=== PATIENT | male | born 1960 | race Caucasian/White ===

== ENCOUNTER 2018-12-24 06:19 | Inpatient (IN) | payer MEDICAID ==
[~2018-12-24] VITALS: Ht 170.2 cm; Wt 78.9 kg
[~2018-12-24 06:19] MED LIST: BACI500P7 GT; CEFT1FRO5 IV; KEPPSOL GT; METO-539 GT; PROT40 IVP; VANC1.257 IV; [UNRECOGNIZED DRUG - CODE] IV
[2018-12-24 07:33] LABS: BASOPHILS % 0.4 % (0.0-2.0); EOSINOPHILS % 2.1 % (0.0-5.0); HEMATOCRIT. 49.7 % (42.0-52.0); HEMOGLOBIN. 16.7 g/dL (14.0-18.0); LYMPHOCYTES % 12.4 % (20.0-50.0); MEAN CORPUSCULAR HEMOGLOBIN 29.8 pg (28.0-32.0); MEAN CORPUSCULAR VOLUME 88.7 fL (80.0-94.0); MEAN PLATELET VOLUME 9.9 fl (7.4-10.4); MONOCYTES % 5.6 % (2.0-8.0); NEUTROPHILS % 79.5 % (40.0-76.0); PLATELET 132 x1000/uL (130-400); RED CELL DISTRIBUTION WIDTH 13.3 % (11.6-14.6)
[2018-12-24 07:36] LABS: CHLORIDE 102 mEq/L (98-107)
[2018-12-24 07:38] LABS: PROTHROMBIN TIME 10.3 sec (9.6-11.0)
[2018-12-24] MEDS ORDERED: VANCOMYCIN 1 G PREMIX 200 ML IV SCH (08:15)
[2018-12-24] MEDS ORDERED: PIPERACILLIN/TAZOBACTAM 3.375GM/50ML PREMIX IV ONE (08:15)
[2018-12-24 09:35] LABS: CLARITY URINE CLEAR (CLEAR); COLOR URINE DARK YELLOW (YELLOW); KETONES URINE 1+ (NEGATIVE); LEUKOCYTE ESTERASE URINE TRACE (NEGATIVE); NITRITE URINE NEGATIVE (NEGATIVE); OCCULT BLOOD URINE 1+ (NEGATIVE); PH URINE 7.5 (4.5-8.0); PROTEIN URINE NEGATIVE (NEGATIVE); SPECIFIC GRAVITY URINE 1.023 (1.005-1.030)
[2018-12-24] MEDS ORDERED: MORPHINE SULFATE 4 MG/ML CPJ (NOT FOR IM USE) IV STA (11:26)
[2018-12-24] MEDS ORDERED: ONDANSETRON HCL 4MG/2ML INJ IV STA (11:26)
[2018-12-24] MEDS ORDERED: IOHEXOL-300 100 ML BOTTLE ONE ×2 (13:03→14:37)
[2018-12-24 14:15] VITALS: BP 98/66
[2018-12-24] MEDS ORDERED: ACETAMINOPHEN 650MG SUPP PR PRN (15:30)
[2018-12-24] MEDS ORDERED: ONDANSETRON HCL 4MG/2ML INJ IV PRN (15:30)
[2018-12-24] MEDS ORDERED: NA PHOS,M-B/NA PHOS,DI-BA ENEMA 118ML PR PRN (15:30)
[2018-12-24 16:00] VITALS: BP 104/60
[2018-12-24] MEDS: ENOXAPARIN 40MG/0.4ML SYR SUBCUT SCH (18:07)
[2018-12-24] MEDS: LEVOFLOXACIN 500MG PREMIX 100 ML IV SCH (18:07)
[2018-12-24] MEDS: DEXT 5%/0.45% NACL 1000ML 1,000 ML IV SCH (18:08)
[2018-12-24 19:56] VITALS: BP 113/59
[2018-12-24] MEDS: METRONIDAZOLE 500 MG PREMIX 100 ML IV SCH (20:30)
[2018-12-24] MEDS: LEVETIRACETAM 500 MG in SODIUM CHLORIDE 0.9% 100 ML IV SCH (21:23)
[2018-12-25] VITALS: BP 104/64
[2018-12-25] MEDS: METRONIDAZOLE 500 MG PREMIX 100 ML IV SCH ×3 (01:39→19:59)
[2018-12-25 04:00] VITALS: BP 108/60
[2018-12-25 06:22] LABS: BASOPHILS % 0.7 % (0.0-2.0); EOSINOPHILS % 0.9 % (0.0-5.0); HEMATOCRIT. 45.8 % (42.0-52.0); HEMOGLOBIN. 15.2 g/dL (14.0-18.0); LYMPHOCYTES % 13.3 % (20.0-50.0); MEAN CORPUSCULAR HEMOGLOBIN 29.7 pg (28.0-32.0); MEAN CORPUSCULAR VOLUME 89.3 fL (80.0-94.0); MEAN PLATELET VOLUME 10.2 fl (7.4-10.4); MONOCYTES % 9.2 % (2.0-8.0); NEUTROPHILS % 75.9 % (40.0-76.0); PLATELET 133 x1000/uL (130-400); RED BLOOD CELL COUNT 5.13 mill/uL (4.7-6.1); RED CELL DISTRIBUTION WIDTH 13.4 % (11.6-14.6)
[2018-12-25 08:00] VITALS: BP 100/62
[2018-12-25] MEDS: LEVETIRACETAM 500 MG in SODIUM CHLORIDE 0.9% 100 ML IV SCH ×2 (08:26→21:39)
[2018-12-25 08:42] LABS: CHLORIDE 104 mEq/L (98-107)
[2018-12-25 12:00] VITALS: BP 110/69
[2018-12-25 16:00] VITALS: BP 122/72
[2018-12-25] MEDS: LEVOFLOXACIN 500MG PREMIX 100 ML IV SCH (16:34)
[2018-12-25] MEDS: ENOXAPARIN 40MG/0.4ML SYR SUBCUT SCH (16:34)
[2018-12-25] MEDS: DEXT 5%/0.45% NACL 1000ML 1,000 ML IV SCH (16:39)
[2018-12-25 20:00] VITALS: BP 116/77
[2018-12-26] VITALS: BP 124/82
[2018-12-26] MEDS: DEXT 5%/0.45% NACL 1000ML 1,000 ML IV SCH ×2 (00:44→17:57)
[2018-12-26] MEDS: METRONIDAZOLE 500 MG PREMIX 100 ML IV SCH ×3 (02:36→17:58)
[2018-12-26 04:00] VITALS: BP 111/68
[2018-12-26 06:05] LABS: BASOPHILS % 1.1 % (0.0-2.0); EOSINOPHILS % 2.2 % (0.0-5.0); HEMATOCRIT. 42.3 % (42.0-52.0); HEMOGLOBIN. 14.3 g/dL (14.0-18.0); LYMPHOCYTES % 20.4 % (20.0-50.0); MEAN CORPUSCULAR HEMOGLOBIN 29.9 pg (28.0-32.0); MEAN CORPUSCULAR VOLUME 88.5 fL (80.0-94.0); MEAN PLATELET VOLUME 9.8 fl (7.4-10.4); MONOCYTES % 10.4 % (2.0-8.0); NEUTROPHILS % 65.9 % (40.0-76.0); PLATELET 147 x1000/uL (130-400); RED BLOOD CELL COUNT 4.78 mill/uL (4.7-6.1)
[2018-12-26 06:08] LABS: CHLORIDE 106 mEq/L (98-107)
[2018-12-26 08:00] VITALS: BP 115/73
[2018-12-26] MEDS: LEVETIRACETAM 500 MG in SODIUM CHLORIDE 0.9% 100 ML IV SCH ×2 (08:54→21:02)
[2018-12-26 12:00] VITALS: BP 121/81
[2018-12-26 16:00] VITALS: BP 112/73
[2018-12-26] MEDS: LEVOFLOXACIN 500MG PREMIX 100 ML IV SCH (18:00)
[2018-12-26] MEDS: ENOXAPARIN 40MG/0.4ML SYR SUBCUT SCH (18:01)
[2018-12-26 20:00] VITALS: BP 107/68
[2018-12-27] VITALS: BP 100/64
[2018-12-27] MEDS: METRONIDAZOLE 500 MG PREMIX 100 ML IV SCH ×3 (01:30→18:08)
[2018-12-27 04:00] VITALS: BP 105/73
[2018-12-27 08:00] VITALS: BP 113/63
[2018-12-27] MEDS: LEVETIRACETAM 500 MG in SODIUM CHLORIDE 0.9% 100 ML IV SCH ×2 (09:47→21:03)
[2018-12-27] MEDS: DEXT 5%/0.45% NACL 1000ML 1,000 ML IV SCH (09:59)
[2018-12-27 12:00] VITALS: BP 113/79
[2018-12-27 16:00] VITALS: BP 119/73
[2018-12-27] MEDS: LEVOFLOXACIN 500MG PREMIX 100 ML IV SCH (16:30)
[2018-12-27] MEDS: ENOXAPARIN 40MG/0.4ML SYR SUBCUT SCH (16:30)
[2018-12-27] MEDS: PANTOPRAZOLE SODIUM 40 MG/VIAL IV SCH (18:10)
[2018-12-27 20:00] VITALS: BP 118/78
[2018-12-28] VITALS: BP 116/56
[2018-12-28] MEDS: METRONIDAZOLE 500 MG PREMIX 100 ML IV SCH ×3 (01:44→19:03)
[2018-12-28] MEDS: DEXT 5%/0.45% NACL 1000ML 1,000 ML IV SCH ×2 (02:44→08:30)
[2018-12-28 04:00] VITALS: BP 128/68
[2018-12-28 08:00] VITALS: BP 115/72
[2018-12-28] MEDS: PANTOPRAZOLE SODIUM 40 MG/VIAL IV SCH (08:29)
[2018-12-28] MEDS: LEVETIRACETAM 500 MG in SODIUM CHLORIDE 0.9% 100 ML IV SCH ×2 (08:29→21:33)
[2018-12-28] MEDS ORDERED: FENTANYL CITRATE/PF 50MCG/ML 2ML VIAL ONE (12:51)
[2018-12-28] MEDS ORDERED: MIDAZOLAM HCL 5 MG/5 ML VIAL ONE (12:51)
[2018-12-28] MEDS ORDERED: FENTANYL CITRATE/PF 50MCG/ML 2ML VIAL IV PRN (13:05)
[2018-12-28] MEDS ORDERED: MIDAZOLAM HCL 2 MG/2 ML VIAL IV PRN (13:07)
[2018-12-28] MEDS: ENOXAPARIN 40MG/0.4ML SYR SUBCUT SCH (15:09)
[2018-12-28 16:00] VITALS: BP 114/73
[2018-12-28] MEDS: SUCRALFATE 1 G/10 ML UDC GT SCH (17:24)
[2018-12-28] MEDS: LEVOFLOXACIN 500MG PREMIX 100 ML IV SCH (17:24)
[2018-12-28] MEDS: METOCLOPRAMIDE HCL 10MG/2ML VIAL IV SCH (19:03)
[2018-12-28 20:00] VITALS: BP 123/76
[2018-12-29] VITALS: BP 112/66
[2018-12-29] MEDS: METRONIDAZOLE 500 MG PREMIX 100 ML IV SCH (01:17)
[2018-12-29] MEDS: SUCRALFATE 1 G/10 ML UDC GT SCH ×4 (01:18→17:18)
[2018-12-29] MEDS: METOCLOPRAMIDE HCL 10MG/2ML VIAL IV SCH ×4 (01:20→17:18)
[2018-12-29 04:00] VITALS: BP 97/61
[2018-12-29] MEDS ORDERED: IPRATROPIUM/ALBUTEROL 0.5-3(2.5)MG/3ML NEB HHN PRN (05:30)
[2018-12-29 08:00] VITALS: BP 99/61
[2018-12-29] MEDS: LEVETIRACETAM 500 MG in SODIUM CHLORIDE 0.9% 100 ML IV SCH (09:31)
[2018-12-29] MEDS: PANTOPRAZOLE SODIUM 40 MG/VIAL IV SCH (09:31)
[2018-12-29 12:00] VITALS: BP 106/64
[2018-12-29 16:00] VITALS: BP 99/58
[2018-12-29] MEDS: ENOXAPARIN 40MG/0.4ML SYR SUBCUT SCH (17:19)
[2018-12-29 17:22] VITALS: BP 100/64
[2018-12-30] MEDS ORDERED: FAMOTIDINE 20MG/2ML VIAL IV SCH (09:00)
== END 2018-12-29 19:40 | DRG 252 ==
LOC: ER 06:19 → 7WST 09:45 → EDBEDREQSVC 09:57 → EDBEDREQ 09:57 → ENRESERV 12:12 → 7WST 14:15
PROVIDERS: ADMIT Hospitalist; ATTEND Hospitalist
PROC: 05H633Z Insertion of Infusion Device into Left Subclavian Vein, Percutaneous Approach (ICD-10-PCS; 2018-12-26)
PROC: B547ZZA Ultrasonography of Left Subclavian Vein, Guidance (ICD-10-PCS; 2018-12-26)
PROC: 0DB78ZX Excision of Stomach, Pylorus, Via Natural or Artificial Opening Endoscopic, Diagnostic (ICD-10-PCS; principal; 2018-12-28)
PROC: 0DB58ZX Excision of Esophagus, Via Natural or Artificial Opening Endoscopic, Diagnostic (ICD-10-PCS; 2018-12-28)
PROC: 0DH63UZ Insertion of Feeding Device into Stomach, Percutaneous Approach (ICD-10-PCS; 2018-12-28)
DX: K94.23 Gastrostomy malfunction (principal); G93.40 Encephalopathy, unspecified; I69.351 Hemiplegia and hemiparesis following cerebral infarction affecting right dominant side; R13.10 Dysphagia, unspecified; K26.9 Duodenal ulcer, unspecified as acute or chronic, without hemorrhage or perforation; K57.92 Diverticulitis of intestine, part unspecified, without perforation or abscess without bleeding; K56.41 Fecal impaction; I10 Essential (primary) hypertension; K20.9 Esophagitis, unspecified; K29.60 Other gastritis without bleeding; K29.80 Duodenitis without bleeding; L03.311 Cellulitis of abdominal wall; K44.9 Diaphragmatic hernia without obstruction or gangrene; Y83.8 Other surgical procedures as the cause of abnormal reaction of the patient, or of later complication, without mention of misadventure at the time of the procedure; Z79.899 Other long term (current) drug therapy; I69.391 Dysphagia following cerebral infarction; Y92.89 Other specified places as the place of occurrence of the external cause
CPT/HCPCS: 36415; 36569; 36573; 71045; 74177; 82962; 83605; 84145; 84484; 88305; 88312; 88313; 93005; 93970; 96365; 96366; 96367; 96375; 99285; A6261; C1725; C1893; C9113; J1650; J1953; J1956; J2250; J2270; J2405; J2543; J2765; J3010; J3370; J3490; J7050; Q9967

== ENCOUNTER 2019-06-22 10:51 | Emergency (ER) | payer MEDICAID ==
[~2019-06-22] VITALS: Ht 172.7 cm; Wt 70.0 kg
[2019-06-22 15:14] VITALS: BP 110/76
== END 2019-06-22 15:15 | disposition home or self-care (01) ==
LOC: ER 10:51
DX: M24.541 Contracture, right hand (principal); I10 Essential (primary) hypertension; Z93.3 Colostomy status; Z93.1 Gastrostomy status; Z86.73 Personal history of transient ischemic attack (TIA), and cerebral infarction without residual deficits; Z79.899 Other long term (current) drug therapy; W06.XXXA Fall from bed, initial encounter; Y93.89 Activity, other specified; Y92.89 Other specified places as the place of occurrence of the external cause; Y99.8 Other external cause status
CPT/HCPCS: 72040; 72170; 99283

== ENCOUNTER 2021-09-20 11:42 | Inpatient (IN) | payer MEDICAID ==
[~2021-09-20] VITALS: Ht 170.2 cm; Wt 87.6 kg
[2021-09-20] MEDS ORDERED: METHYLPREDNISOLONE SOD SUCC 125 MG/2 ML VIAL IV STA (12:35)
[2021-09-20] MEDS ORDERED: IPRATROPIUM BROMIDE (0.02%) 0.5MG/2.5ML NEB HHN STA (12:35)
[2021-09-20] MEDS ORDERED: ALBUTEROL (0.083%) 2.5MG/3ML NEB HHN SCH (13:00)
[2021-09-20 13:07] LABS: HEMATOCRIT. 26.8 % (42.0-52.0); HEMOGLOBIN. 8.4 g/dL (14.0-18.0); MEAN CORPUSCULAR HEMOGLOBIN 26.9 pg (28.0-32.0); MEAN CORPUSCULAR VOLUME 85.7 fL (80.0-94.0); MEAN PLATELET VOLUME 8.6 fl (7.4-10.4); PLATELET 182 x1000/uL (130-400); RED BLOOD CELL COUNT 3.12 mill/uL (4.7-6.1); RED CELL DISTRIBUTION WIDTH 15.8 % (11.6-14.6)
[2021-09-20 13:09] LABS: CHLORIDE 101 mEq/L (98-107)
[2021-09-20] MEDS ORDERED: SODIUM CHLORIDE 0.9% 500 ML IV ONE (13:45)
[2021-09-20 14:03] LABS: PLATELET ESTIMATE NORMAL
[2021-09-20] MEDS ORDERED: CEFTRIAXONE 1 G PREMIX 50 ML IV ONE (14:15)
[2021-09-20] MEDS ORDERED: VANCOMYCIN 1 G PREMIX 200 ML IV SCH (14:15)
[2021-09-20] MEDS ORDERED: DIATR MEGLU/DIATRIZOATE SOLN 30ML ONE (14:19)
[2021-09-20] MEDS ORDERED: CLINDAMYCIN 600 MG in DEXTROSE 5% WATER 50 ML IV ONE (16:45)
[2021-09-20] MEDS ORDERED: PIPERACILLIN/TAZ 3.375G PREMIX 50 ML IV ONE (16:45)
[2021-09-20] MEDS ORDERED: CLINDAMYCIN 600MG PREMIX 50 ML IV NR (20:30)
[2021-09-20] MEDS ORDERED: FUROSEMIDE 20MG/2ML VIAL IVP NR (22:00)
[2021-09-20] MEDS: PIPERACILLIN/TAZOBACTAM 3.375 G in DEXTROSE 5% WATER 50 ML IV SCH (23:54)
[2021-09-21] MEDS: VANCOMYCIN 500 MG PREMIX 100 ML IV SCH ×2 (00:18→07:00)
[2021-09-21] MEDS: PIPERACILLIN/TAZOBACTAM 3.375 G in DEXTROSE 5% WATER 50 ML IV SCH ×2 (06:00→14:00)
[2021-09-21] MEDS ORDERED: ONDANSETRON HCL 4MG/2ML INJ IV PRN (08:15)
[2021-09-21] MEDS: FUROSEMIDE 40MG/4ML VIAL IVP SCH (09:57)
[2021-09-21 16:00] VITALS: BP 102/58
[2021-09-21] MEDS ORDERED: VANCOMYCIN 750 MG PREMIX 150 ML IV SCH (16:00)
[2021-09-21 17:01] VITALS: BP 110/65
[2021-09-21 18:00] VITALS: BP 99/64
[2021-09-21 20:00] VITALS: BP 112/58
[2021-09-21] MEDS: VANCOMYCIN 750 MG PREMIX 150 ML IV SCH (20:44)
[2021-09-21 21:21] LABS: HEMATOCRIT. 27.4 % (42.0-52.0); HEMOGLOBIN. 8.4 g/dL (14.0-18.0); MEAN CORPUSCULAR HEMOGLOBIN 26.2 pg (28.0-32.0); MEAN CORPUSCULAR VOLUME 85.2 fL (80.0-94.0); MEAN PLATELET VOLUME 9.3 fl (7.4-10.4); PLATELET 142 x1000/uL (130-400); RED BLOOD CELL COUNT 3.21 mill/uL (4.7-6.1); RED CELL DISTRIBUTION WIDTH 16.1 % (11.6-14.6)
[2021-09-21 21:28] LABS: CHLORIDE 94 mEq/L (98-107)
[2021-09-21 22:00] VITALS: BP 102/51
[2021-09-21] MEDS: PIPERACILLIN/TAZOBACTAM 3.375G in DEXT 5% WATER 50ML IV SCH (22:20)
[2021-09-21 23:51] LABS: PLATELET ESTIMATE NORMAL
[2021-09-22] VITALS (12 sets, daily range): BP systolic 93–111; BP diastolic 44–70
[2021-09-22] MEDS: VANCOMYCIN 750 MG PREMIX 150 ML IV SCH ×2 (04:30→18:04)
[2021-09-22] MEDS: PIPERACILLIN/TAZOBACTAM 3.375G in DEXT 5% WATER 50ML IV SCH ×3 (05:36→21:13)
[2021-09-22 07:00] LABS: CHLORIDE 95 mEq/L (98-107)
[2021-09-22 07:11] LABS: HEMATOCRIT. 29.3 % (42.0-52.0); HEMOGLOBIN. 9.3 g/dL (14.0-18.0); MEAN CORPUSCULAR HEMOGLOBIN 27.1 pg (28.0-32.0); MEAN CORPUSCULAR VOLUME 85.5 fL (80.0-94.0); MEAN PLATELET VOLUME 9.4 fl (7.4-10.4); PLATELET 135 x1000/uL (130-400); RED BLOOD CELL COUNT 3.43 mill/uL (4.7-6.1); RED CELL DISTRIBUTION WIDTH 16.5 % (11.6-14.6)
[2021-09-22] MEDS: FUROSEMIDE 40MG/4ML VIAL IVP SCH (08:34)
[2021-09-22] MEDS: ACETAMINOPHEN 325MG TABLET PO PRN (08:34)
[2021-09-22] MEDS: PANTOPRAZOLE SODIUM 40 MG/VIAL IV SCH (08:34)
[2021-09-22] MEDS: METOPROLOL TARTRATE 50MG TABLET PO SCH (08:35)
[2021-09-22 10:57] LABS: BG BASE EXCESS 12.7 mmol/L (-2.0-2.0); BG CARBOXYHEMOGLOBIN 0.3 % (0.5-1.5); BG DEOXYHEMOGLOBIN 5.5 % (0.0-5.0); BG HCO3 ACT 37.3 mmol/L (22.0-26.0); BG METHEMOGLOBIN 0.2 % (0.0-1.5); BG OXYGEN SATURATION 94.5 % (92.0-98.5); BG PCO2 49.5 mmHg (35.0-45.0); BG PH 7.495 (7.350-7.450); BG PO2 77.3 mmHg (75.0-100.0); BG SAMPLE SITE LEFT RADIAL; BG TOTAL HEMOGLOBIN 7.8 g/dL (12.0-18.0); BG VENT MODE MASK - BIPAP
[2021-09-22] MEDS ORDERED: FUROSEMIDE 40MG/4ML VIAL IVP NR (13:45)
[2021-09-22 14:41] LABS: PLATELET ESTIMATE NORMAL
[2021-09-22] MEDS: IPRATROPIUM/ALBUTEROL 0.5-3(2.5)MG/3ML NEB HHN SCH (21:06)
[2021-09-23] VITALS (10 sets, daily range): BP systolic 94–128; BP diastolic 47–68
[2021-09-23] MEDS: IPRATROPIUM/ALBUTEROL 0.5-3(2.5)MG/3ML NEB HHN SCH ×4 (02:12→20:45)
[2021-09-23] MEDS: ACETYLCYSTEINE 100MG/ML 10% VIAL 4ML INH SCH ×5 (02:12→22:00)
[2021-09-23] MEDS: VANCOMYCIN 750 MG PREMIX 150 ML IV SCH (05:08)
[2021-09-23] MEDS: PIPERACILLIN/TAZOBACTAM 3.375G in DEXT 5% WATER 50ML IV SCH ×3 (05:58→21:34)
[2021-09-23 06:16] LABS: CHLORIDE 88 mEq/L (98-107)
[2021-09-23 06:19] LABS: HEMATOCRIT. 23.5 % (42.0-52.0); HEMOGLOBIN. 7.7 g/dL (14.0-18.0); MEAN CORPUSCULAR HEMOGLOBIN 27.4 pg (28.0-32.0); MEAN PLATELET VOLUME 9.5 fl (7.4-10.4); PLATELET 107 x1000/uL (130-400); RED BLOOD CELL COUNT 2.79 mill/uL (4.7-6.1); RED CELL DISTRIBUTION WIDTH 16.5 % (11.6-14.6)
[2021-09-23] MEDS: PANTOPRAZOLE SODIUM 40 MG/VIAL IV SCH (08:52)
[2021-09-23] MEDS: FUROSEMIDE 40MG/4ML VIAL IVP SCH (08:52)
[2021-09-23] MEDS: METOPROLOL TARTRATE 50MG TABLET PO SCH (08:52)
[2021-09-23 19:21] LABS: TOTAL IRON BINDING CAPACITY 241 ug/dL (250-450)
[2021-09-24] VITALS: BP 103/53
[2021-09-24 04:00] VITALS: BP 86/56
[2021-09-24] MEDS: PIPERACILLIN/TAZOBACTAM 3.375G in DEXT 5% WATER 50ML IV SCH ×3 (05:59→21:04)
[2021-09-24 06:13] LABS: BASOPHILS % 0.5 % (0.0-2.0); EOSINOPHILS % 3.2 % (0.0-5.0); LYMPHOCYTES % 7.7 % (20.0-50.0); MEAN CORPUSCULAR HEMOGLOBIN 27.5 pg (28.0-32.0); MEAN CORPUSCULAR VOLUME 83.5 fL (80.0-94.0); MONOCYTES % 7.5 % (2.0-8.0); NEUTROPHILS % 81.1 % (40.0-76.0); PLATELET 91 x1000/uL (130-400); RED BLOOD CELL COUNT 2.46 mill/uL (4.7-6.1); RED CELL DISTRIBUTION WIDTH 16.5 % (11.6-14.6)
[2021-09-24 06:25] LABS: HEMATOCRIT. 20.6 % (42.0-52.0); HEMOGLOBIN. 6.8 g/dL (14.0-18.0)
[2021-09-24 06:58] LABS: CHLORIDE 93 mEq/L (98-107)
[2021-09-24 07:06] LABS: VANCOMYCIN TROUGH 9.5 ug/mL (5.0-10.0)
[2021-09-24 07:26] LABS: PLATELET ESTIMATE SLIGHTLY DECREASED
[2021-09-24 08:00] VITALS: BP 99/53
[2021-09-24] MEDS ORDERED: POTASSIUM CHLORIDE INJ 40 MEQ in DEXT 5% WATER 500 ML IV ONE (08:15)
[2021-09-24] MEDS ORDERED: POTASSIUM CHLORIDE 20MEQ/PACKET PO NR ×2 (08:22→11:30)
[2021-09-24] MEDS: IPRATROPIUM/ALBUTEROL 0.5-3(2.5)MG/3ML NEB HHN SCH ×4 (08:25→20:41)
[2021-09-24] MEDS: FUROSEMIDE 40MG/4ML VIAL IVP SCH (08:45)
[2021-09-24] MEDS: METOPROLOL TARTRATE 50MG TABLET PO SCH (09:00)
[2021-09-24] MEDS: PANTOPRAZOLE SODIUM 40 MG/VIAL IV SCH (09:05)
[2021-09-24] MEDS: KCL 20MEQ/100ML PREMIX 100 ML IV SCH ×2 (10:56→12:45)
[2021-09-24 12:00] VITALS: BP 101/46
[2021-09-24 13:05] LABS: BG BASE EXCESS 17.4 mmol/L (-2.0-2.0); BG CARBOXYHEMOGLOBIN 0.7 % (0.5-1.5); BG DEOXYHEMOGLOBIN 1.8 % (0.0-5.0); BG FRACTION INSPIRED OXYGEN 35; BG HCO3 ACT 42.1 mmol/L (22.0-26.0); BG METHEMOGLOBIN 0.4 % (0.0-1.5); BG OXYGEN SATURATION 98.2 % (92.0-98.5); BG OXYHEMOGLOBIN 97.1 % (94.0-97.0); BG PCO2 52.7 mmHg (35.0-45.0); BG PO2 117.4 mmHg (75.0-100.0); BG SAMPLE SITE RIGHT RADIAL; BG TOTAL HEMOGLOBIN 7.7 g/dL (12.0-18.0); BG VENT MODE MASK - VENTI
[2021-09-24] MEDS: ACETYLCYSTEINE 100MG/ML 10% VIAL 4ML INH SCH (14:37)
[2021-09-24 16:00] VITALS: BP 114/57
[2021-09-24 18:15] LABS: CHLORIDE 99 mEq/L (98-107)
[2021-09-24 20:00] VITALS: BP 132/73
[2021-09-25] VITALS (7 sets, daily range): BP systolic 102–127; BP diastolic 63–70
[2021-09-25] MEDS: IPRATROPIUM/ALBUTEROL 0.5-3(2.5)MG/3ML NEB HHN SCH ×4 (00:54→21:34)
[2021-09-25] MEDS: ACETYLCYSTEINE 100MG/ML 10% VIAL 4ML INH SCH ×3 (00:54→15:01)
[2021-09-25] MEDS: PIPERACILLIN/TAZOBACTAM 3.375G in DEXT 5% WATER 50ML IV SCH ×2 (05:00→14:00)
[2021-09-25 06:26] LABS: HEMATOCRIT 22.9 % (42.0-52.0); HEMOGLOBIN 7.4 g/dL (14.0-18.0); MEAN CORPUSCULAR HEMOGLOBIN 27.2 pg (28.0-32.0); MEAN CORPUSCULAR VOLUME 84.5 fL (80.0-94.0); PLATELET 112 x1000/uL (130-400); RED BLOOD CELL COUNT 2.71 mill/uL (4.7-6.1); RED CELL DISTRIBUTION WIDTH 16.7 % (11.6-14.6)
[2021-09-25 08:54] LABS: BG BASE EXCESS 11.6 mmol/L (-2.0-2.0); BG CARBOXYHEMOGLOBIN 1.2 % (0.5-1.5); BG DEOXYHEMOGLOBIN 2.2 % (0.0-5.0); BG FRACTION INSPIRED OXYGEN 35; BG HCO3 ACT 36.5 mmol/L (22.0-26.0); BG METHEMOGLOBIN 0.5 % (0.0-1.5); BG OXYGEN SATURATION 97.8 % (92.0-98.5); BG OXYHEMOGLOBIN 96.1 % (94.0-97.0); BG PCO2 51.2 mmHg (35.0-45.0); BG PH 7.471 (7.350-7.450); BG PO2 100.8 mmHg (75.0-100.0); BG SAMPLE SITE LEFT RADIAL; BG TOTAL HEMOGLOBIN 8.1 g/dL (12.0-18.0); BG VENT MODE MASK - VENTI
[2021-09-25] MEDS: METOPROLOL TARTRATE 50MG TABLET PO SCH ×2 (09:00→11:21)
[2021-09-25] MEDS: PANTOPRAZOLE SODIUM 40 MG/VIAL IV SCH (09:31)
[2021-09-25] MEDS: FUROSEMIDE 40MG/4ML VIAL IVP SCH (09:31)
[2021-09-26] VITALS: BP 108/70
[2021-09-26] MEDS: ACETYLCYSTEINE 100MG/ML 10% VIAL 4ML INH SCH ×3 (01:39→12:17)
[2021-09-26] MEDS: IPRATROPIUM/ALBUTEROL 0.5-3(2.5)MG/3ML NEB HHN SCH ×3 (01:39→12:17)
[2021-09-26 04:00] VITALS: BP 111/61
[2021-09-26] MEDS ORDERED: HEPARIN 100 UNITS/1 ML VIAL IVF PRN (07:00)
[2021-09-26 08:00] VITALS: BP 131/67
[2021-09-26] MEDS: PANTOPRAZOLE SODIUM 40 MG/VIAL IV SCH (09:00)
[2021-09-26] MEDS ORDERED: ONDANSETRON HCL 4MG TABLET PO PRN (11:30)
[2021-09-26 11:49] VITALS: BP 110/70
[2021-09-26] MEDS: METOPROLOL TARTRATE 50MG TABLET PO SCH (12:18)
[2021-09-26] MEDS: ACETAMINOPHEN 325MG TABLET PO PRN (12:19)
[2021-09-26 16:00] VITALS: BP 97/63
[2021-09-26 16:36] LABS: BASOPHILS % 1.2 % (0.0-2.0); EOSINOPHILS % 6.4 % (0.0-5.0); HEMATOCRIT. 25.7 % (42.0-52.0); HEMOGLOBIN. 8.6 g/dL (14.0-18.0); LYMPHOCYTES % 9.7 % (20.0-50.0); MEAN CORPUSCULAR HEMOGLOBIN 28.1 pg (28.0-32.0); MEAN CORPUSCULAR VOLUME 83.8 fL (80.0-94.0); MONOCYTES % 6.5 % (2.0-8.0); NEUTROPHILS % 76.2 % (40.0-76.0); RED BLOOD CELL COUNT 3.07 mill/uL (4.7-6.1); RED CELL DISTRIBUTION WIDTH 16.5 % (11.6-14.6)
[2021-09-26 16:41] LABS: CHLORIDE 101 mEq/L (98-107)
[2021-09-26 20:00] VITALS: BP 120/68
[2021-09-26 23:01] LABS: MEAN PLATELET VOLUME 8.9 fl (7.4-10.4); PLATELET 131 x1000/uL (130-400)
[2021-09-27] VITALS: BP 116/62
[2021-09-27 04:00] VITALS: BP 113/71
[2021-09-27] MEDS: ACETAMINOPHEN 325MG TABLET PO PRN (06:31)
[2021-09-27] MEDS ORDERED: PANTOPRAZOLE 40MG DR TABLET PO SCH (07:20)
[2021-09-27] MEDS: IPRATROPIUM/ALBUTEROL 0.5-3(2.5)MG/3ML NEB HHN SCH (08:42)
[2021-09-27] MEDS ORDERED: FUROSEMIDE 40MG TABLET PO SCH (09:00)
[2021-09-27 09:34] VITALS: BP 122/68
== END 2021-09-27 08:53 | DRG 720 ==
LOC: ER 11:42 → 5EST 18:18 → ENRESERV 09-21 13:42 → 5EST 09-21 16:00 → 6EST 09-25 13:35
PROVIDERS: ADMIT Internal Medicine; ATTEND Internal Medicine
PROC: 5A09457 Assistance with Respiratory Ventilation, 24-96 Consecutive Hours, Continuous Positive Airway Pressure (ICD-10-PCS; principal; 2021-09-20)
DX: A41.9 Sepsis, unspecified organism (principal); J96.01 Acute respiratory failure with hypoxia; E43 Unspecified severe protein-calorie malnutrition; J91.8 Pleural effusion in other conditions classified elsewhere; D69.6 Thrombocytopenia, unspecified; E87.3 Alkalosis; I69.351 Hemiplegia and hemiparesis following cerebral infarction affecting right dominant side; J18.9 Pneumonia, unspecified organism; I50.9 Heart failure, unspecified; D64.9 Anemia, unspecified; I11.0 Hypertensive heart disease with heart failure; G40.909 Epilepsy, unspecified, not intractable, without status epilepticus; R13.10 Dysphagia, unspecified; N50.89 Other specified disorders of the male genital organs; Z20.822 Contact with and (suspected) exposure to COVID-19; J44.1 Chronic obstructive pulmonary disease with (acute) exacerbation; J44.0 Chronic obstructive pulmonary disease with (acute) lower respiratory infection; E87.6 Hypokalemia; Z66 Do not resuscitate; Z93.1 Gastrostomy status; Z95.828 Presence of other vascular implants and grafts; Z79.899 Other long term (current) drug therapy; Z68.30 Body mass index [BMI] 30.0-30.9, adult
CPT/HCPCS: 36415; 36600; 71045; 74018; 74176; 80048; 80053; 80202; 82375; 82728; 82805; 83540; 83550; 83605; 83735; 83880; 84484; 85025; 85027; 86850; 86870; 86900; 86920; 87426; 93005; 93306; 94640; 94660; 99291; C9113; C9803; J0696; J1940; J2543; J2930; J3370; J3480; J3490; J7030; J7060; J7608; Q9963; U0003; U0005